=== PATIENT | male | born 1990 | race Caucasian/White ===

== ENCOUNTER 2019-06-26 05:54 | Observation (INO) | payer OTHER ==
[2019-06-26] MEDS ORDERED: ONDANSETRON 4 MG/2 ML VIAL IVP STA (06:12)
[2019-06-26] MEDS ORDERED: KETOROLAC 30 MG/ML 1 ML VIAL IVP STA (06:12)
[2019-06-26] MEDS ORDERED: SODIUM CHLORIDE 0.9% 1,000 ML IV ONE (06:12)
[2019-06-26] MEDS ORDERED: MORPHINE SULFATE 4 MG/ML SYRINGE IVP STA (06:12)
--- NOTE | 2019-06-26 06:15 | ED ---
Abdominal Pain HPI - General Chief Complaint: Abdominal Pain Stated Complaint: abd pain Time Seen by Provider: 06/26/19 06:02 Source: patient, family, RN notes reviewed, old records reviewed Mode of arrival: ambulatory Limitations: no limitations - History of Present Illness Initial Comments: Patient is 20-year-old male who presents emergency Department today with complaints of right lower quadrant abdominal pain starting progressively at 3:00 this morning. Patient reports that he has no changes in urination. He reports that he is passing gas attempting to have a bowel movement but has not. He denies any vomiting or specific diarrhea. He reports pain is a 7 out of 10. Reports the pain radiates from the right lower quadrant to the umbilicus. Patient states that he's had no other abdominal surgeries or other past medical history. - Related Data Allergies Allergy/AdvReac Type Severity Reaction Status Date / Time No Known Allergies Allergy Verified 06/26/19 06:01 Review of Systems ROS Statement: Those systems with pertinent positive or pertinent negative responses have been documented in the HPI. ROS Other: All systems not noted in ROS Statement are negative. Past Medical History Past Medical History: No Reported History History of Any Multi-Drug Resistant Organisms: None Reported Past Surgical History: No Surgical Hx Reported, Orthopedic Surgery Past Psychological History: No Psychological Hx Reported Smoking Status: Never smoker Past Alcohol Use History: Occasional Past Drug Use History: None Reported General Exam Limitations: no limitations General appearance: alert, in no apparent distress Head exam: Present: atraumatic, normocephalic, normal inspection Eye exam: Present: normal appearance, PERRL, EOMI. Absent: scleral icterus, conjunctival injection, periorbital swelling ENT exam: Present: normal exam, mucous membranes moist Neck exam: Present: normal inspection. Absent: tenderness, meningismus, lymphadenopathy Respiratory exam: Present: normal lung sounds bilaterally. Absent: respiratory distress, wheezes, rales, rhonchi, stridor Cardiovascular Exam: Present: regular rate GI/Abdominal exam: Present: soft, tenderness (Right lower quadrant tenderness), normal bowel sounds. Absent: distended, guarding, rebound, rigid Extremities exam: Present: normal inspection, full ROM, normal capillary refill. 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 Patient denies any vomiting. He states that he follow he had about a bowel movement and attempted to. Patient is given IV fluids and upper obtained. Patient has evidence of leukocytosis. White blood cell count is elevated at 16,000. Labs otherwise were unremarkable. Patient does report that he is a daily drinker as well. Patient computed tomography scan shows evidence of early appendicitis. Patient started on Zosyn and blood cultures obtained. Patient case discussed with Dr. Reynaga. Patient case discussed with Dr. Flowers. - Lab Data Result diagrams: 06/26/19 06:10 06/26/19 06:10 Lab Results 06/26/19 06/26/19 06/26/19 Range/Units 06:10 06:10 06:10 WBC 16.0 H (3.8-10.6) k/uL RBC 4.89 (4.30-5.90) m/uL Hgb 14.8 (13.0-17.5) gm/dL Hct 45.3 (39.0-53.0) % MCV 92.6 (80.0-100.0) fL MCH 30.2 (25.0-35.0) pg MCHC 32.6 (31.0-37.0) g/dL RDW 11.6 (11.5-15.5) % Plt Count 302 (150-450) k/uL Neutrophils % 81 % Lymphocytes % 11 % Monocytes % 5 % Eosinophils % 2 % Basophils % 0 % Neutrophils # 12.9 H (1.3-7.7) k/uL Lymphocytes # 1.7 (1.0-4.8) k/uL Monocytes # 0.8 (0-1.0) k/uL Eosinophils # 0.3 (0-0.7) k/uL Basophils # 0.1 (0-0.2) k/uL PT 10.2 (9.0-12.0) sec INR 1.0 (<1.2) APTT 22.7 (22.0-30.0) sec Sodium 138 (137-145) mmol/L Potassium 4.6 (3.5-5.1) mmol/L Chloride 104 (98-107) mmol/L Carbon Dioxide 27 (22-30) mmol/L Anion Gap 7 mmol/L BUN 16 (9-20) mg/dL Creatinine 0.97 (0.66-1.25) mg/dL Est GFR (CKD-EPI)AfAm >90 (>60 ml/min/1.73 sqM) Est GFR (CKD-EPI)NonAf >90 (>60 ml/min/1.73 sqM) Glucose 118 H (74-99) mg/dL Calcium 9.1 (8.4-10.2) mg/dL Total Bilirubin 0.7 (0.2-1.3) mg/dL AST 39 (17-59) U/L ALT 50 H (4-49) U/L Alkaline Phosphatase 58 (38-126) U/L Total Protein 8.2 (6.3-8.2) g/dL Albumin 4.9 (3.5-5.0) g/dL Amylase 62 (30-110) U/L Lipase 128 (23-300) U/L - Radiology Data Radiology results: report reviewed EKG performed at 6:17 AM shows normal sinus rhythm normal ECG. Ventricular rate 94 bpm. Was 148 ms. QS duration is 84 ms. QT QTc is 356/[address] shows Findings consistent with an early/mild acute appendicitis. Disposition Clinical Impression: Appendicitis Disposition: ADMITTED IP TO THIS [facility] Condition: Good Is patient prescribed a controlled substance at d/c from ED?: No Referrals: None,Stated [Primary Care Provider] - 1-2 days Time of Disposition: 07:24
[2019-06-26] MEDS: SODIUM CHLORIDE 0.9% 1,000 ML IV SCH ×2 (06:19→12:59)
[2019-06-26 06:21] LABS: Basophils # (A) 0.1 k/uL (0-0.2); Basophils % (A) 0 %; Eosinophils # (A) 0.3 k/uL (0-0.7); Eosinophils % (A) 2 %; HCT 45.3 % (39.0-53.0); HGB 14.8 gm/dL (13.0-17.5); Lymphocytes # (A) 1.7 k/uL (1.0-4.8); Lymphocytes % (A) 11 %; MCH 30.2 pg (25.0-35.0); MCHC 32.6 g/dL (31.0-37.0); MCV 92.6 fL (80.0-100.0); Monocytes # (A) 0.8 k/uL (0-1.0); Monocytes % (A) 5 %; Neutrophils # (A) 12.9 k/uL (1.3-7.7); Neutrophils % (A) 81 %; Platelet Count 302 k/uL (150-450); RBC 4.89 m/uL (4.30-5.90); RDW 11.6 % (11.5-15.5)
[2019-06-26 06:29] LABS: Partial Thromboplastin Time 22.7 sec (22.0-30.0); Prothrombin Time 10.2 sec (9.0-12.0)
[2019-06-26 06:31] LABS: ALT 50 U/L (4-49); AST 39 U/L (17-59); African American GFR (CKD) >90 (>60 ml/min/1.73 sqM); Albumin 4.9 g/dL (3.5-5.0); Alkaline Phosphatase 58 U/L (38-126); Amylase 62 U/L (30-110); Anion Gap 7 mmol/L; Blood Urea Nitrogen 16 mg/dL (9-20); Calcium 9.1 mg/dL (8.4-10.2); Carbon Dioxide 27 mmol/L (22-30); Chloride 104 mmol/L (98-107); Glucose 118 mg/dL (74-99); Non-African American GFR(CKD) >90 (>60 ml/min/1.73 sqM); Potassium 4.6 mmol/L (3.5-5.1); Sodium 138 mmol/L (137-145); Total Bilirubin 0.7 mg/dL (0.2-1.3); Total Protein 8.2 g/dL (6.3-8.2)
--- NOTE | 2019-06-26 07:11 | CT ---
EXAM: CT Abdomen and Pelvis With Intravenous Contrast CLINICAL HISTORY: Reason: RLQ abdominal pain, appendicitis suspected TECHNIQUE: Axial computed tomography images of the abdomen and pelvis with intravenous contrast. CTDI is 15.6 mGy and DLP is 1424 mGy-cm. This CT exam was performed using one or more of the following dose reduction techniques: automated exposure control, adjustment of the mA and/or kV according to patient size, and/or use of iterative reconstruction technique. COMPARISON: No relevant prior studies available. FINDINGS: Lung bases: Unremarkable. No mass. No consolidation. ABDOMEN: Liver: Unremarkable. No mass. Gallbladder and bile ducts: Unremarkable. No calcified stones. No ductal dilation. Pancreas: Unremarkable. No mass. No ductal dilation. Spleen: Unremarkable. No splenomegaly. Adrenals: Unremarkable. No mass. Kidneys and ureters: Unremarkable. No solid mass. No hydronephrosis. Stomach and bowel: Unremarkable. No obstruction. No mucosal thickening. PELVIS: Appendix: The appendix is borderline dilated, measuring up to 9 mm in maximal diameter, with intraluminal appendicolith as well as mild concentric appendiceal wall thickening and trace periappendiceal fat stranding. Findings are most likely due to an early acute appendicitis. No loculated periappendiceal fluid collection. Bladder: Unremarkable. No mass. Reproductive: Unremarkable as visualized. ABDOMEN and PELVIS: Intraperitoneal space: Unremarkable. No free air. No significant fluid collection. Bones/joints: No acute fracture. No dislocation. Soft tissues: Unremarkable. Vasculature: Unremarkable. No abdominal aortic aneurysm. Lymph nodes: Unremarkable. No enlarged lymph nodes. IMPRESSION: Findings consistent with an early/mild acute appendicitis. <MYCVCSECTION> Communications: 06/26/19 07:13 Call Doctor Regarding Appendicitis, called Dr. Gutiérrez on 06/25 07:13 (-04:00)
[2019-06-26] MEDS ORDERED: PIPERACILLIN-TAZOBACTAM 3.375 GM in SODIUM CHLORIDE 0.9% 100 ML IVPB STA (07:19)
[2019-06-26 07:22] LABS: Appearance,Urine Clear (Clear); Bilirubin,Urine Negative (Negative); Blood,Urine Negative (Negative); Color,Urine Light Yellow; Glucose,Urine (UA) Negative (Negative); Ketones,Urine Negative (Negative); Leukocyte Esterase,Urine Negative (Negative); Nitrite,Urine Negative (Negative); Protein,Urine Negative (Negative); Urobilinogen,Urine <2.0 mg/dL (<2.0)
[2019-06-26] MEDS ORDERED: IBUPROFEN 400 MG TAB PO PRN (07:25)
[2019-06-26] MEDS ORDERED: ONDANSETRON 4 MG/2 ML VIAL IVP PRN (07:25)
[2019-06-26] MEDS ORDERED: ACETAMINOPHEN TAB 325 MG TAB PO PRN (07:25)
[2019-06-26] MEDS ORDERED: NALOXONE 0.4 MG/ML 1 ML VIAL IV PRN (07:25)
[2019-06-26] MEDS ORDERED: MORPHINE SULFATE 4 MG/ML SYRINGE IV PRN (07:25)
[2019-06-26] MEDS ORDERED: KETOROLAC 30 MG/ML 1 ML VIAL IVP PRN (07:25)
--- NOTE | 2019-06-26 10:16 | P.GSHP ---
History of Present Illness H&P Date: 06/26/19 Chief Complaint: Acute appendicitis Patient came to the hospital this morning with right lower quadrant pain. This will come from sleep at 3 AM. No history of similar events. Some nausea but no vomiting. Normal bowel movement. Low-grade temp of 99. White blood cell count elevated at 16. CAT scan performed showing a mildly inflamed distended appendix. - Review of Systems Comment: The patient denies any acute changes in vision or hearing, no dysphagia or odynophagia, no chest pain or shortness of breath, no dysuria or hematuria, no headache, no runny nose, no rectal bleeding or melena, no unexplained weight loss Past Medical History Past Medical History: No Reported History History of Any Multi-Drug Resistant Organisms: None Reported Past Surgical History: Orthopedic Surgery Additional Past Surgical History / Comment(s): ACLS surgery when in high school,surgery on right hand(titanium plate in hand). Past Anesthesia/Blood Transfusion Reactions: No Reported Reaction Additional Past Anesthesia/Blood Transfusion Reaction / Comment(s): Nop history of blood transfusion Past Psychological History: No Psychological Hx Reported Smoking Status: Never smoker Past Alcohol Use History: Occasional Past Drug Use History: None Reported - Past Family History Mother Family Medical History: No Reported History Father Family Medical History: No Reported History Medications and Allergies Home Medications Medication Instructions Recorded Confirmed Type No Known Home Medications 06/26/19 06/26/19 History Allergies Allergy/AdvReac Type Severity Reaction Status Date / Time No Known Allergies Allergy Verified 06/26/19 09:20 Surgical - Exam Vital Signs Temp Pulse Resp BP Pulse Ox 98.7 F 100 18 159/99 98 06/26/19 05:57 06/26/19 05:57 06/26/19 05:57 06/26/19 05:57 06/26/19 05:57 Physical exam: General: Well-developed, well-nourished HEENT: Normocephalic, sclerae nonicteric Abdomen: Mild to moderate right lower quadrant tenderness, nondistended Extremities: No edema Neuro: Alert and oriented Results - Labs 06/26/19 06:10 06/26/19 06:10 Abnormal Lab Results - Last 24 Hours (Table) 06/26/19 06/26/19 Range/Units 06:10 06:10 WBC 16.0 H (3.8-10.6) k/uL Neutrophils # 12.9 H (1.3-7.7) k/uL Glucose 118 H (74-99) mg/dL ALT 50 H (4-49) U/L Diabetes panel 06/26/19 Range/Units 06:10 Sodium 138 (137-145) mmol/L Potassium 4.6 (3.5-5.1) mmol/L Chloride 104 (98-107) mmol/L Carbon Dioxide 27 (22-30) mmol/L BUN 16 (9-20) mg/dL Creatinine 0.97 (0.66-1.25) mg/dL Glucose 118 H (74-99) mg/dL Calcium 9.1 (8.4-10.2) mg/dL AST 39 (17-59) U/L ALT 50 H (4-49) U/L Alkaline Phosphatase 58 (38-126) U/L Total Protein 8.2 (6.3-8.2) g/dL Albumin 4.9 (3.5-5.0) g/dL Calcium panel 06/26/19 Range/Units 06:10 Calcium 9.1 (8.4-10.2) mg/dL Albumin 4.9 (3.5-5.0) g/dL Pituitary panel 06/26/19 Range/Units 06:10 Sodium 138 (137-145) mmol/L Potassium 4.6 (3.5-5.1) mmol/L Chloride 104 (98-107) mmol/L Carbon Dioxide 27 (22-30) mmol/L BUN 16 (9-20) mg/dL Creatinine 0.97 (0.66-1.25) mg/dL Glucose 118 H (74-99) mg/dL Calcium 9.1 (8.4-10.2) mg/dL Adrenal panel 06/26/19 Range/Units 06:10 Sodium 138 (137-145) mmol/L Potassium 4.6 (3.5-5.1) mmol/L Chloride 104 (98-107) mmol/L Carbon Dioxide 27 (22-30) mmol/L BUN 16 (9-20) mg/dL Creatinine 0.97 (0.66-1.25) mg/dL Glucose 118 H (74-99) mg/dL Calcium 9.1 (8.4-10.2) mg/dL Total Bilirubin 0.7 (0.2-1.3) mg/dL AST 39 (17-59) U/L ALT 50 H (4-49) U/L Alkaline Phosphatase 58 (38-126) U/L Total Protein 8.2 (6.3-8.2) g/dL Albumin 4.9 (3.5-5.0) g/dL Assessment and Plan (1) Appendicitis Narrative/Plan: Clinical scenario discussed with the patient in detail. CAT scan shows mild appendicitis. Will proceed with laparoscopic appendectomy, possible open. Continue antibiotics. Possible discharge later today. Risks of bleeding, infection, abscess, hernia, bladder bowel and ureteral injury, conversion to an open procedure. Patient understands and wishes to proceed. Current Visit: Yes Status: Acute Code(s): K37 - UNSPECIFIED APPENDICITIS SNOMED Code(s): 40296099
[2019-06-26] MEDS ORDERED: PROPOFOL 10 MG/ML 20 ML VIAL IV ONE (11:05)
[2019-06-26] MEDS ORDERED: SUCCINYLCHOLINE CHLORIDE 100 MG/5 ML SYR IV ONE (11:05)
[2019-06-26] MEDS ORDERED: ROCURONIUM BROMIDE 10 MG/ML 5 ML VIAL IV ONE (11:05)
[2019-06-26] MEDS ORDERED: GLYCOPYRROLATE 0.2 MG/ML 2 ML VIAL ONE (11:05)
[2019-06-26] MEDS ORDERED: HYDROmorphone (PF) 1 MG/ML ONE (11:05)
[2019-06-26] MEDS ORDERED: NEOSTIGMINE 1 MG/ML 10 ML VIAL ONE (11:05)
[2019-06-26] MEDS ORDERED: MIDAZOLAM 2 MG/2 ML VIAL ONE (11:05)
[2019-06-26] MEDS ORDERED: LIDOCAINE 1% INJ 10MG/ML (20 ML MDV) ONE (11:05)
[2019-06-26] MEDS ORDERED: fentaNYL (PF) 50 MCG/ML 2 ML AMP ONE (11:05)
[2019-06-26] MEDS ORDERED: IV FLUID CONTINUATION 900 ML IV ONE (11:20)
[2019-06-26] MEDS ORDERED: SODIUM CHLORIDE 0.9% 50 ML with ceFAZolin 2,000 MG IV ONE ×2 (11:20)
[2019-06-26] MEDS ORDERED: BUPIVACAINE (PF) 0.25% 30 ML VIAL SQ ONE (11:39)
--- NOTE | 2019-06-26 11:54 | P.OP ---
Date of Procedure: 06/26/19 Procedure(s) Performed: PREOPERATIVE DIAGNOSIS: Acute appendicitis POSTOPERATIVE DIAGNOSIS: Same PROCEDURE: Laparoscopic appendectomy SURGEON: Lionel EBL: 5 mL ANESTHESIA: General COMPLICATIONS: None OPERATIVE PROCEDURE: The patient was brought and placed on the operating table in the supine position. The patient was placed under general anesthesia. The abdomen was prepped and draped in the usual sterile fashion. A small vertical infraumbilical incision was made. The fascia was retracted anteriorly with Tesfaye forceps. The Veress needle was advanced into the peritoneal cavity. The saline drop test was normal. Insufflation took place to 15 mmHg. A 5 mm trocar was then placed. An additional 5 mm suprapubic trocar was placed under direct visualization as well as a 12 mm left lower quadrant trocar under direct visualization. The appendix was inspected. It was acutely inflamed. The mesoappendix was dissected. The base of the appendix was divided using a linear 45 mm intestinal stapler. The mesentery itself was divided using the LigaSure device. The area was then irrigated. No further purulence or bleeding was seen. The appendix was brought out of the peritoneal cavity through the left lower quadrant trocar site within the trocar itself. The fascia at the 12 mm site was closed using a Carlos Eduardo-Fly 0 Vicryl stitch. The skin at all 3 sites was closed using 4-0 Monocryl sutures. Skin glue was then applied. DISPOSITION: Stable to recovery room
[2019-06-26 12:08] VITALS: TEMP 97.8
[2019-06-26 12:37] VITALS: RESP 16
[2019-06-26 15:58] VITALS: BP 114/76; PULSE 88
[2019-06-26] MEDS ORDERED: PIPERACILLIN-TAZOBACTAM 3.375 GM in SODIUM CHLORIDE 0.9% 100 ML IVPB SCH (16:00)
[2019-06-26] MEDS ORDERED: oxyCODONE-APAP 5-325MG 1 EACH TAB PO PRN (16:18)
== END 2019-06-26 20:12 | disposition home or self-care (01) ==
LOC: EC 05:54 → 4SSUR 07:25
PROVIDERS: ADMIT Surgery; ATTEND Surgery
DX: K35.80 Unspecified acute appendicitis (principal); E66.9 Obesity, unspecified; Z68.34 Body mass index [BMI] 34.0-34.9, adult; K21.9 Gastro-esophageal reflux disease without esophagitis
CPT/HCPCS: 44970; 99285; 36415; 93005; 88304; 80053; 82150; 83690; 85025; 85610; 85730; 81003; 87040; 74177; G0378; J2543; J2250; J2270; J2710; J2405; J0690; J2001; J3010; J1885; J1170; J0330; J2704; Q9967

== ENCOUNTER 2020-05-12 08:26 | Emergency (ER) | payer OTHER ==
[2020-05-12 08:33] VITALS: TEMP 98.1
[2020-05-12] MEDS ORDERED: methylPREDNISolone SOD SUCCI 125 MG/2 ML VIAL IM ONE (08:46)
--- NOTE | 2020-05-12 08:55 | ED ---
ENT HPI - General Chief complaint: ENT Stated complaint: Sore throat Time Seen by Provider: 05/12/20 08:35 Source: patient Mode of arrival: ambulatory Limitations: no limitations - History of Present Illness Initial comments: Patient is a 29-year-old male presenting to the emergency Department with complaints of a sore throat that started early this morning. Patient states yesterday he felt his normal self, having no symptoms at all. Patient states in the middle of the night he woke up feeling like something was in the back of his throat, he did have a few vomiting episodes back to back and thought it could've been indigestion so he went back to sleep. He did have pizza and a few beers the night before. Through the night he was waking up feeling like something was in the back of his throat. When he woke up this morning, his looked in the back of his throat and noticed his uvula was enlarged so he came into the ER for evaluation. He denies any fever or chills, no coughing, no runny nose. He denies taking any medications except for Benadryl this morning. He denies any chest pain or shortness of breath, he denies any trouble breathing. He states he feels fine other than feeling like something is in his back of his throat. He has no further complaints at this time. To the ER his vital signs are stable. - Related Data Previous Rx's Medication Instructions Recorded oxyCODONE HCL [OxyIR] 5 mg PO Q6H PRN 3 Days #7 tab 06/26/19 predniSONE 50 mg PO DAILY #5 tab 05/12/20 Allergies Allergy/AdvReac Type Severity Reaction Status Date / Time No Known Allergies Allergy Verified 05/12/20 08:33 Review of Systems ROS Statement: Those systems with pertinent positive or pertinent negative responses have been documented in the HPI. ROS Other: All systems not noted in ROS Statement are negative. Past Medical History Past Medical History: No Reported History History of Any Multi-Drug Resistant Organisms: None Reported Past Surgical History: Appendectomy, Orthopedic Surgery Additional Past Surgical History / Comment(s): ACLS surgery when in high school,surgery on right hand(titanium plate in hand). Past Anesthesia/Blood Transfusion Reactions: No Reported Reaction Additional Past Anesthesia/Blood Transfusion Reaction / Comment(s): Nop history of blood transfusion Past Psychological History: No Psychological Hx Reported Smoking Status: Never smoker Past Alcohol Use History: Occasional Past Drug Use History: None Reported - Past Family History Mother Family Medical History: No Reported History Father Family Medical History: No Reported History General Exam - General Exam Comments Initial Comments: GENERAL: Patient is well-developed and well-nourished. Patient is nontoxic and in no acute distress. HEAD: Atraumatic, normocephalic. EYES: Pupils equal round and reactive to light, extraocular movements intact, sclera anicteric, conjunctiva are normal. Eyelids were unremarkable. ENT: TMs normal, nares patent, oropharynx clear without exudates. Patient's uvula is enlarged, slightly erythematous. No tonsillar enlargement, no exudate. Moist mucous membranes. NECK: Normal range of motion, supple without lymphadenopathy or JVD. No pain with palpation. LUNGS: Unlabored respirations. Breath sounds clear to auscultation bilaterally and equal. No wheezes rales or rhonchi. HEART: Regular rate and rhythm without murmurs, rubs or gallops. ABDOMEN: Soft, nontender, normoactive bowel sounds. No guarding, no rebound. No masses appreciated. : Deferred MUSCULOSKELETAL: Normal extremities with adequate strength and normal range of motion, no pitting or edema. No clubbing or cyanosis. NEUROLOGICAL: Patient is alert and oriented x 3. Motor and sensory are also intact. Cranial nerves II through XII grossly intact. Symmetrical smile. Normal speech, normal gait. PSYCH: Normal mood, normal affect. SKIN: Warm, Dry, normal turgor, no rashes or lesions noted. Limitations: no limitations Course Vital Signs 05/12/20 08:30 Temperature 98.1 F Pulse Rate 84 Respiratory 16 Rate Blood Pressure 153/98 O2 Sat by Pulse 98 Oximetry Medical Decision Making - Medical Decision Making Patient is a 29-year-old male presenting with a sore throat started early this morning. On exam, patient's uvula is enlarged, no tonsillar enlargement, no signs of an abscess. Patient's vital signs are stable, he has been afebrile. He has no other symptoms. Strep test is negative. Patient was given 125 mg of solu- Medrol the ER. He'll be continued on prednisone starting tomorrow daily. He will follow up with his regular doctor. Strict return parameters were discussed with the patient and he verbalized understanding. Case discussed with Dr. Zhu. - Lab Data Lab Results 05/12/20 Range/Units 08:59 Group A Strep Rapid Negative (Negative) Disposition Clinical Impression: Uvulitis Disposition: HOME SELF-CARE Condition: Stable Instructions (If sedation given, give patient instructions): Uvulitis (ED) Additional Instructions: Please return to the Emergency Department if symptoms worsen or any other concerns, such as trouble breathing, fever. Take steroids as prescribed. Also recommend anti-inflammatory like Motrin or Aleve as well. Drink plenty of fluids. Follow-up with your regular doctor. Prescriptions: predniSONE 50 mg PO DAILY #5 tab Is patient prescribed a controlled substance at d/c from ED?: No Referrals: Evangelist Quigley MD [Primary Care Provider] - 1-2 days
[2020-05-12 09:43] VITALS: BP 150/97; PULSE 83; RESP 18
== END 2020-05-12 09:41 | disposition home or self-care (01) ==
LOC: EC 08:26
DX: K12.2 Cellulitis and abscess of mouth (principal)
CPT/HCPCS: 87081; 87430; 99283; 96372; J2930